=== PATIENT | female | born 1960 | race Caucasian/White ===

== ENCOUNTER 2020-03-21 19:30 | Emergency (ER) | payer OTHER ==
[2020-03-21 19:37] VITALS: BP 141/87; PULSE 77; TEMP 98.9; BMI 23.0
== END 2020-03-21 21:00 | disposition home or self-care (01) ==
LOC: FER 19:30
DX: J06.9 Acute upper respiratory infection, unspecified (principal)
CPT/HCPCS: 71045-TC-FY; 99283-25; C9803; U0003

== ENCOUNTER 2020-10-29 07:12 | Day surgery (SDC) | payer OTHER ==
[2020-10-23 15:56] VITALS: BMI 22.4
[2020-10-29] MEDS ORDERED: BUPIVACAINE HCL/PF 2.5 MG/ML - 30 ML VIAL IJ ONE (08:39)
[2020-10-29] MEDS ORDERED: PROPOFOL 20 ML ONE (08:49)
[2020-10-29] MEDS ORDERED: MIDAZOLAM HCL 2 MG/2 ML SINGLE DOSE VIAL ONE (08:49)
[2020-10-29] MEDS ORDERED: ceFAZolin SODIUM 1 GM VIAL ONE (09:05)
[2020-10-29] MEDS ORDERED: LIDOCAINE 1%/EPI 1:100000 (20 ML MULTI DOSE VIAL) ONE (09:08)
[2020-10-29 09:56] VITALS: PULSE 70; TEMP 99
[2020-10-29 10:32] VITALS: BP 118/73
== END 2020-10-29 10:34 | disposition home or self-care (01) ==
LOC: FASU 07:12
PROVIDERS: ATTEND Orthopaedic Surgery Sports Medicine
PROC: 0JBN0ZX Excision of Right Lower Leg Subcutaneous Tissue and Fascia, Open Approach, Diagnostic (ICD-10-PCS; principal; 2020-10-29 09:15)
DX: D17.23 Benign lipomatous neoplasm of skin and subcutaneous tissue of right leg (principal)
CPT/HCPCS: 88304-TC